=== PATIENT | male | born 1975 | race African-American/Black ===

== ENCOUNTER → 2020-12-28 | Outpatient (CLI) | payer BC, OTHER ==
[~2020-12-28] MED LIST: AUGMENTIN 875875 M1 PO; FLEXERIL PO; IMITREX20 MG NS; PERCOCET 5-3251 EACH PO; PROAIR HFA8.5 GM; ZOFRAN ODT4 MG SUBLING; ZOMIG ZMT2.5 MG PO
== END ==
LOC: SJCVCIMAG 08:00
PROVIDERS: ATTEND Internal Medicine
DX: I51.7 Cardiomegaly (principal); R07.9 Chest pain, unspecified; K21.9 Gastro-esophageal reflux disease without esophagitis; Z88.0 Allergy status to penicillin; Z88.1 Allergy status to other antibiotic agents; Z79.899 Other long term (current) drug therapy